=== PATIENT | male | born 1990 | race Caucasian/White ===

== ENCOUNTER 2017-02-05 16:06 | Emergency (ER) | payer SELFPAY ==
[2017-02-05 16:17] VITALS: BP 134/89
[2017-02-05] MEDS ORDERED: DUONEB 0.5 MG-3 MG/3 ML SOLN IH ONE (16:17)
--- NOTE | 2017-02-05 17:40 | Emergency Department Report ---
ED Asthma HPI - General Chief Complaint: Adult Asthma Stated Complaint: ASTHMA ATTACK Time Seen by Provider: 02/05/17 17:36 Source: patient Mode of arrival: Ambulatory Limitations: No Limitations - History of Present Illness Initial Comments: 26-year-old -[place] male comes in today for complaint of asthma been having symptoms for about 2 weeks. Patient reports that he had just recently moved to [place] and that's when his symptoms started. He does report a past medical history of asthma currently takes no medication. He does not have a nebulizer machine nor does he have an inhaler. Patient's had one treatment since being in triage and reports that he feels much better now. MD Complaint: wheezing -: week(s) (2) Asthma History: history of prior ED visit Severity: moderate Context: ran out of meds, allergen exposure Associated Symptoms: dry cough - Related Data Current Asthma Therapy: none Previous Rx's Medication Instructions Recorded Last Taken Type ALBUTEROL Inhaler [Proair] 2 puff IH QID PRN #1 inhalation 02/05/17 Unknown Rx Loratadine [Claritin] 10 mg PO DAILY #30 tablet 02/05/17 Unknown Rx Allergies Allergy/AdvReac Type Severity Reaction Status Date / Time No Known Allergies Allergy Unverified 02/05/17 16:17 ED Review of Systems ROS: Stated complaint: ASTHMA ATTACK Other details as noted in HPI Eyes: other ENT: other Respiratory: cough, wheezing ED Past Medical Hx - Past Medical History Previous Medical History?: Yes Hx Asthma: Yes - Surgical History Past Surgical History?: No - Social History Smoking Status: Never Smoker Substance Use Type: Alcohol - Medications Home Medications: Home Medications Medication Instructions Recorded Confirmed Last Taken Type ALBUTEROL Inhaler [Proair] 2 puff IH QID PRN #1 inhalation 02/05/17 Unknown Rx Loratadine [Claritin] 10 mg PO DAILY #30 tablet 02/05/17 Unknown Rx ED Physical Exam - General Limitations: No Limitations General appearance: alert, in no apparent distress - Head Head exam: Present: atraumatic, normocephalic - Eye Eye exam: Present: normal appearance, PERRL, EOMI - ENT ENT exam: Present: normal exam, mucous membranes moist - Neck Neck exam: Present: normal inspection, full ROM - Respiratory Respiratory exam: Present: normal lung sounds bilaterally. Absent: respiratory distress, wheezes, rales - Cardiovascular Cardiovascular Exam: Present: regular rate, normal rhythm, normal heart sounds ED Course Vital Signs 02/05/17 16:13 Temperature 99.9 F H Pulse Rate 101 H Respiratory 24 Rate Blood Pressure 134/89 O2 Sat by Pulse 98 Oximetry - Reevaluation(s) Reevaluation #1: 02/05/17 17:41 Patient received duo neb while in triage, he reports that he feels much better. ED Medical Decision Making - Medical Decision Making Evaluated by this provider fast track. Patient received Ventolin neb while in triage. Lungs are clear at this time. Discussed with patient would discharge him with a pro-air inhaler prescription. Patient verbalized understanding. We will give patient a good Rx coupon for discount on his inhaler. Critical care attestation.: If time is entered above; I have spent that time in minutes in the direct care of this critically ill patient, excluding procedure time. ED Disposition Clinical Impression: Asthma attack Disposition: DISCHARGED TO HOME OR SELFCARE Is pt being admited?: No Does the pt Need Aspirin: No Condition: Stable Instructions: Allergies (ED), Asthma (ED) Additional Instructions: Please use your albuterol inhaler as prescribed. Follow up with her primary care provider. Prescriptions: ALBUTEROL Inhaler [Proair] 2 puff IH QID PRN #1 inhalation PRN Reason: Shortness Of Breath Loratadine [Claritin] 10 mg PO DAILY #30 tablet Referrals: [facility] [Outside] - 3-5 Days
== END 2017-02-05 18:04 | disposition home or self-care (01) ==
LOC: ED 16:06
DX: J45.909 Unspecified asthma, uncomplicated (principal)